=== PATIENT | female | born 1940 | race Two or more races ===

== ENCOUNTER 2021-07-27 23:08 | Emergency (ER) | payer MEDICARE, OTHER ==
[~2021-07-27] VITALS: Ht 157.5 cm; Wt 72.6 kg
--- NOTE | 2021-07-27 23:18 | NUR ---
LICO 89 FROM HOME FOR C/O FEVER. HAD TYLENOL AROUND 1999. ON LEVAQUIN AND KEFLEX FOR RECURRENT UTI. PT RESPONSIVE TO PAIN. TOLERATING R/A WELL WITH NO SOB. CONNECTED PT TO POX AND MONITOR.
--- NOTE | 2021-07-27 23:20 | NUR ---
Sara kulkarni in [facility] - 07/27/21 at 2334 by [facility] LFA #20G S/L PATENT AND INTACT. BLOOD COLLECTED AND GIVEN TO LAB
[2021-07-27] MEDS ORDERED: ACETAMINOPHEN 650 MG/SUPP.RECT RC ONE (23:29)
--- NOTE | 2021-07-27 23:33 | NUR ---
URINE COLLECTED AND SENT TO LAB
[2021-07-27] MEDS: ACETAMINOPHEN 650 MG/SUPP.RECT RC ONE (23:34)
--- NOTE | 2021-07-27 23:38 | NUR ---
COVID ANTIGEN SWAB COLLECTED AND SENT TO LAB
[2021-07-27 23:40] LABS: BASOPHILS % (AUTO) 0.4 % (0.0-2.0); EOSINOPHILS % (AUTO) 0.6 % (0.0-6.0); HEMATOCRIT 29 % (33-45); HEMOGLOBIN 9.6 g/dL (11.5-14.8); LYMPHOCYTES # (AUTO) 1.8 K/uL (0.8-4.8); LYMPHOCYTES % (AUTO) 16.4 % (20.0-44.0); MEAN CORPUSCULAR HGB CONC 33 g/dl (31.0-36.0); MEAN CORPUSCULAR VOLUME 91 fL (82-100); MONOCYTES # (AUTO) 0.9 K/uL (0.1-1.30); MONOCYTES % (AUTO) 8.4 % (2.0-12.0); NEUTROPHILS # (AUTO) 8.2 K/uL (1.8-8.9); NEUTROPHILS % (AUTO) 74.2 % (43.0-81.0); PLATELET COUNT (AUTO) 252 K/uL (150-450); RED BLOOD CELL COUNT(AUTO) 3.23 MIL/uL (4.0-5.2); WHITE BLOOD COUNT (AUTO) 11.1 K/uL (4.3-11.0)
[2021-07-27 23:48] LABS: BILIRUBIN,URINE NEGATIVE (NEGATIVE); COLOR,URINE YELLOW (YELLOW); LEUKOCYTE ESTERASE ,URINE MODERATE (NEGATIVE); NITRITE, URINE NEGATIVE (NEGATIVE); PROTEIN,URINE >=300 mg/dl (NEGATIVE); UGLUCOSE NEGATIVE (NEGATIVE); UROBILINOGEN,URINE 0.2 EU/dL (0.2)
[2021-07-27 23:57] LABS: BACTERIA,URINE 2+ /HPF (None Seen); RBC,URINE 21-50 /HPF (0-2); SQUAMOUS EPITHELIAL CELL,UR Few /HPF (None Seen)
[2021-07-27] MEDS ORDERED: VANCOMYCIN 1 GM VIAL ONE (23:57)
[2021-07-27] MEDS ORDERED: CEFEPIME 1 GM VIAL ONE (23:57)
--- NOTE | 2021-07-27 23:59 | NUR ---
MRSA SWAB COLLECTED AND SENT TO LAB. PATIENT'S BELONGINGS LIST DONE.
[2021-07-28] MEDS: CEFEPIME 1 GM in IV D5W 50 ML IV ONE (00:06)
[2021-07-28 00:07] LABS: CALCIUM, SERUM 8.1 mg/dL (8.5-10.1); CARBON DIOXIDE 19 mmol/L (21-32); CHLORIDE 116 mmol/L (98-107); CREATININE 2.7 mg/dL (0.6-1.3); GLUCOSE 145 mg/dL (74-106); POTASSIUM 4.9 mmol/L (3.5-5.1); SODIUM SERUM 147 mmol/L (136-145); UREA NITROGEN, BLOOD 36 mg/dL (7-18)
[2021-07-28] MEDS ORDERED: CEFEPIME 1 GM VIAL ONE (00:07)
[2021-07-28] MEDS ORDERED: VANCOMYCIN 1 GM VIAL ONE (00:08)
[2021-07-28 00:11] LABS: ALANINE AMINOTRANSFERASE 48 U/L (12-78); ALBUMIN 2.6 g/dL (3.4-5.0); ALKALINE PHOSPHATASE 116 U/L (46-116); ASPARTATE AMINOTRANSFERASE 41 U/L (15-37); BILIRUBIN,DIRECT 0.1 mg/dL (0.0-0.2); BILIRUBIN,TOTAL 0.3 mg/dL (0.2-1.0)
[2021-07-28] MEDS: VANCOMYCIN 1 GM in IV D5W 250 ML IV ONE (00:28)
--- NOTE | 2021-07-28 01:25 | NUR ---
DR REDMOND ON THE PHONE WITH DR RAUSCH
--- NOTE | 2021-07-28 01:42 | NUR ---
FAXED COVID RESULTS TO [facility] @ [facility]
--- NOTE | 2021-07-28 02:36 | NUR ---
HARVEY: [phone] ACCEPTED AT [facility] ROOM [address]265 # FOR REPORT: [phone] [facility] AUTH FOR TRANSPORT: [id number] [facility] ETA:10-15 MIN
--- NOTE | 2021-07-28 02:43 | NUR ---
REPORT GIVEN TO ASHKAN DUFF VP FOR [facility]
--- NOTE | 2021-07-28 02:49 | NUR ---
REPORT GIVEN TO [facility] EMT FOR [facility]. PT TRANSFERRING TO [facility].
[2021-07-28 02:53] VITALS: BP 142/70
== END 2021-07-28 03:05 | disposition short-term general hospital (02) ==
LOC: ER 23:10
DX: N39.0 Urinary tract infection, site not specified (principal); N17.9 Acute kidney failure, unspecified; Z20.822 Contact with and (suspected) exposure to COVID-19; D72.829 Elevated white blood cell count, unspecified; D50.9 Iron deficiency anemia, unspecified; E87.0 Hyperosmolality and hypernatremia; Z93.6 Other artificial openings of urinary tract status; F03.90 Unspecified dementia, unspecified severity, without behavioral disturbance, psychotic disturbance, mood disturbance, and anxiety; I11.9 Hypertensive heart disease without heart failure; Z87.440 Personal history of urinary (tract) infections
CPT/HCPCS: 36415; 71045; 80048; 80076; 81001; 83605; 84145; 84484; 85025; 85730; 87040 ×2; 87081; 87086; 87426; 93005; 96365; 96367; 99285; J0692; J3370; J7060; C9803